=== PATIENT | male | born 1990 | race Caucasian/White ===

== ENCOUNTER 2023-12-05 16:16 | Inpatient (IN) | payer OTHER ==
[2023-12-05 17:04] VITALS: BMI 20.7
[2023-12-05] MEDS ORDERED: LOPERAMIDE HCL 2 MG CAPSULE PO PRN (19:50)
[2023-12-05] MEDS ORDERED: BISMUTH SUBSALICYLATE 524 MG/30 ML PO PRN (19:50)
[2023-12-05] MEDS ORDERED: MAG HYDROX/AL HYDROX/SIMETH 30 ML UNIT-DOSE CUP PO PRN (19:50)
[2023-12-05] MEDS ORDERED: ONDANSETRON *ODT* 4 MG TABLET SL PRN (19:50)
[2023-12-05] MEDS ORDERED: IBUPROFEN 400 MG TABLET (FP) PO PRN (19:50)
[2023-12-05] MEDS ORDERED: BENZOCAINE/MENTHOL (CHLORASEPTIC ) LOZENGE MM PRN (19:50)
[2023-12-05] MEDS ORDERED: BENZONATATE 200 MG CAPSULE PO PRN (19:50)
[2023-12-05] MEDS ORDERED: NALOXONE HCL 0.4 MG/ML VIAL IM PRN (19:50)
[2023-12-05] MEDS ORDERED: NALOXONE HCL (KLOXXADO) 8 MG SPRAY NS PRN (19:50)
[2023-12-05] MEDS ORDERED: hydrOXYzine PAMOATE 25 MG CAPSULE (FP) PO PRN (19:50)
[2023-12-05] MEDS ORDERED: POLYETHYLENE GLYCOL (HEALTHYLAX) 3350 17 GM PACKET PO PRN (19:50)
[2023-12-05] MEDS ORDERED: MAGNESIUM HYDROX 2400MG/30ML ORAL SUSPENSION 30 ML CUP PO PRN (19:50)
[2023-12-05] MEDS ORDERED: ACETAMINOPHEN 325 MG TABLET (FP) PO PRN (19:50)
[2023-12-05] MEDS ORDERED: guaiFENesin 600 MG TABLET.ER (FP) PO PRN (19:50)
[2023-12-05] MEDS: DICYCLOMINE HCL 10 MG CAPSULE PO PRN (21:25)
[2023-12-05] MEDS: MELATONIN 5 MG TABLETS PO SCH (21:25)
[2023-12-05] MEDS: THIAMINE HCL 100 MG TABLET (FP) PO SCH (21:25)
[2023-12-06] MEDS: PRENATAL VITAMINS W/ FOLIC ACID TABLET (FP) PO SCH (10:13)
[2023-12-06 10:59] LABS: CHLORIDE 106 mmol/L (98-107); POTASSIUM 4.3 mmol/L (3.5-5.1); SODIUM 141 mmol/L (136-145)
[2023-12-06 11:02] LABS: ALBUMIN 3.5 g/dl (3.4-5.0); ANION GAP 5 mmol/L (4-13); BLOOD UREA NITROGEN 11.1 mg/dL (7-18); CALCIUM 9.1 mg/dL (8.5-10.1); CO2 29 mmol/L (21-32); GLUCOSE,RANDOM 80 mg/dL (74-106)
[2023-12-06 11:05] LABS: CREATININE 0.8 mg/dL (0.55-1.3); SGOT/AST 25 U/L (15-37); SGPT/ALT 45 U/L (13-61)
[2023-12-06 11:07] LABS: BILIRUBIN,TOTAL 0.3 mg/dL (0.2-1); HEMATOCRIT 36.5 % (35.4-49); HEMOGLOBIN 12.5 GM/dL (11.7-16.9); MCH 31.3 pg (25.7-33.7); MCHC 34.3 g/dl (32.0-35.9); MEAN CELL VOLUME 91.2 fl (80-96); MEAN PLT VOLUME 7.2 fl (7.5-11.1); PLATELET COUNT 278 10^3/uL (134-434); RDW 13.4 % (11.9-15.9); TOT PROT 6.3 g/dl (6.4-8.2); WHITE BLOOD COUNT 4.4 K/mm3 (4.0-10.0)
[2023-12-06 11:08] LABS: ALK PHOS 46 U/L (45-117)
[2023-12-07] MEDS ORDERED: diazePAM 5 MG TABLET PO PRN (10:47)
[2023-12-07] MEDS: diazePAM 5 MG TABLET PO SCH (11:13)
[2023-12-07] MEDS: PYRIDOXINE HCL (B-6) 50 MG TABLET (FP) PO SCH ×2 (16:06→22:10)
[2023-12-07] MEDS: ISONIAZID 300 MG TABLET (FP) PO SCH (22:10)
[2023-12-08] MEDS: NICOTINE POLACRILEX 2 MG GUM BUC PRN (10:40)
[2023-12-08] MEDS: METHOCARBAMOL 500 MG TABLET PO PRN (17:36)
[2023-12-09] MEDS: diazePAM 5 MG TABLET PO SCH (05:58)
[2023-12-09] MEDS: IBUPROFEN 600 MG TABLET (FP) PO PRN (19:19)
[2023-12-10] MEDS: diazePAM 5 MG TABLET PO SCH (05:08)
[2023-12-10] MEDS: QUEtiapine FUMARATE 100 MG TABLET (FP) PO SCH (21:22)
[2023-12-11] MEDS: diazePAM 5 MG TABLET PO ONE (05:27)
[2023-12-11 09:37] VITALS: BP 95/56; PULSE 68; RESP 17; TEMP 97.3
== END 2023-12-11 11:08 | disposition home or self-care (01) | DRG 774 ==
LOC: YASAS 16:16 → Y3N 20:48
PROVIDERS: ADMIT Allergy & Immunology; ATTEND Surgery
PROC: HZ2ZZZZ Detoxification Services for Substance Abuse Treatment (ICD-10-PCS; principal; 2023-12-05)
DX: F10.230 Alcohol dependence with withdrawal, uncomplicated (principal); F14.10 Cocaine abuse, uncomplicated; F12.20 Cannabis dependence, uncomplicated; F17.210 Nicotine dependence, cigarettes, uncomplicated; F25.9 Schizoaffective disorder, unspecified; F19.24 Other psychoactive substance dependence with psychoactive substance-induced mood disorder; F43.10 Post-traumatic stress disorder, unspecified; G47.00 Insomnia, unspecified; Z86.11 Personal history of tuberculosis; Z87.11 Personal history of peptic ulcer disease; Z59.00 Homelessness unspecified
CPT/HCPCS: 36415; 71046-TC-FY; 80053; 80307; 85027; 86780; 87635; 93005; 93010